=== PATIENT | female | born 2000 | race Caucasian/White ===

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

== ENCOUNTER 2023-12-26 11:17 | Inpatient (IN) | payer BC ==
[~2023-12-26 11:17] MED LIST: Bupivacaine 0.25% 10 ML SDV ONE
[2023-12-26] MEDS ORDERED: Lidocaine 1% 50 ML MDV INJECT PRN (13:23)
[2023-12-26] MEDS ORDERED: Sodium Chloride 0.9% 10 ML Syringe FLUSH PRN (13:23)
[2023-12-26] MEDS: Misoprostol 25 MCG (1/4 of 100 MCG) Tab VAG SCH (13:36)
[2023-12-26 13:50] LABS: BASOPHILS PERCENT AUTO 0.3 % (0.0-1.0); EOSINOPHILS ABSOLUTE AUTO 0.1 K/mm3 (0.0-0.4); EOSINOPHILS PERCENT AUTO 0.7 % (0.0-6.0); HEMATOCRIT 38.8 % (37.0-47.0); HEMOGLOBIN 12.9 gm/dl (12.0-16.0); IMMATURE GRAN PERCENT AUTO 0.7 % (0.0-0.4); LYMPHOCYTES ABSOLUTE AUTO 1.5 K/mm3 (1.0-4.8); LYMPHOCYTES PERCENT AUTO 10.6 % (24.0-44.0); MEAN CORPUSCULAR HEMOGLOBIN 27.9 pg (28.0-32.0); MEAN CORPUSCULAR HGB CONC 33.2 g/dl (32.0-36.0); MEAN CORPUSCULAR VOLUME 83.8 fl (83.0-99.0); MONOCYTES ABSOLUTE AUTO 0.9 K/mm3 (0.0-0.8); MONOCYTES PERCENT AUTO 6.2 % (0.0-8.0); NEUTROPHILS ABSOLUTE AUTO 11.2 K/mm3 (1.8-7.7); NEUTROPHILS PERCENT AUTO 81.5 % (41.0-71.0); PLATELET COUNT,PLT 266 K/mm3 (150-400); RED BLOOD CELL COUNT 4.63 M/mm3 (4.10-5.30); WHITE BLOOD CELL COUNT,WBC 13.79 K/mm3 (3.9-11.3)
[2023-12-26 14:14] LABS: A/G RATIO 0.8 (1-2); ALBUMIN 2.9 g/dl (3.4-5.0); ANION GAP 16.7 (5-15); BILIRUBIN TOTAL 0.2 mg/dL (0.2-1.0); CALCIUM 8.9 mg/dL (8.5-10.1); CREATININE 0.6 mg/dL (0.55-1.02); EST CRCL DRUG DOSING (CG) 113.36 mL/min; POTASSIUM,K 3.7 mEq/L (3.5-5.1); PROTEIN TOTAL,TP 6.5 g/dl (6.4-8.2); URIC ACID 4.3 mg/dL (2.6-6.0)
[2023-12-26 14:23] LABS: CREATININE,URINE RAND 116.4 mg/dL (30.0-125.0); PROTEIN,URINE RANDOM 13.5 mg/dL (0.0-11.8)
[2023-12-26] MEDS: Ondansetron 4 MG/2 ML SDV IVPUSH PRN (21:38)
[2023-12-26] MEDS: Nalbuphine 10 MG/ML Syringe IVPUSH PRN (21:38)
[2023-12-26] MEDS: Oxytocin/Lactated Ringers 30 UNIT/500 ML BAG IV SCH (21:43)
[2023-12-26] MEDS: Sodium Chloride 0.9% 10 ML Syringe FLUSH SCH (22:21)
[2023-12-26] MEDS ORDERED: diphenhydrAMINE 50 MG/ML SDV IVPUSH PRN (22:54)
[2023-12-26] MEDS ORDERED: ePHEDrine 50 MG/ML SDV IVPUSH PRN (22:54)
[2023-12-26] MEDS: fentaNYL 100 MCG/2 ML SDV EPIDUR PRN (23:02)
[2023-12-26] MEDS: Bupivacaine/fentaNYL/NS 100 ML Bag EPIDUR PRN (23:03)
[2023-12-26] MEDS: Lactated Ringers 1,000 ML IV SCH (23:06)
[2023-12-27] MEDS ORDERED: Sodium Chloride 0.9% 10 ML Syringe FLUSH PRN (07:23)
[2023-12-27] MEDS ORDERED: ceFAZolin 2 GM in Sodium Chloride 0.9% 100 ML IV ONE (07:45)
[2023-12-27] MEDS ORDERED: Docusate Sodium 100 MG Cap PO PRN (11:46)
[2023-12-27] MEDS: Metoclopramide 10 MG/2 ML SDV IVPUSH ONE (14:25)
[2023-12-27] MEDS: Citric Acid/Sodium Citrate Solution 30 ML Cup PO ONE (14:25)
[2023-12-27] MEDS: Azithromycin 500 MG in Sodium Chloride 0.9% 250 ML IV ONE (14:25)
[2023-12-27] MEDS: ceFAZolin 2 GM in Sodium Chloride 0.9% 50 ML IV ONE (14:26)
[2023-12-27] MEDS: ceFAZolin 1 GM in Sodium Chloride 0.9% 50 ML IV ONE (14:26)
[2023-12-27] MEDS: Ibuprofen 600 MG Tab PO SCH ×2 (14:46→14:48)
[2023-12-27] MEDS: Benzocaine/Menthol 20%-0.5% Spray 78 GM Cannister TOP PRN (14:49)
[2023-12-27] MEDS: Witch Hazel Medicated Pads 40/Jar TOP PRN (14:50)
[2023-12-27] MEDS: Acetaminophen 325 MG Tab PO PRN (20:29)
[2023-12-29] MEDS: Measles, Mumps & Rubella Vaccine 0.5 ML SDV SUBCUT ONE (20:22)
[2023-12-29 21:45] VITALS: BP 141/86; PULSE 89
== END 2023-12-29 21:02 | disposition home or self-care (01) | DRG 560 ==
LOC: JD.OB 11:17 → OBSVTOIN 12-27 11:17 → JD.OB 12-27 11:18
PROVIDERS: ADMIT Obstetrics & Gynecology; ATTEND Obstetrics & Gynecology
PROC: 10E0XZZ Delivery of Products of Conception, External Approach (ICD-10-PCS; principal; 2023-12-27)
PROC: 3E0R3BZ Introduction of Anesthetic Agent into Spinal Canal, Percutaneous Approach (ICD-10-PCS; 2023-12-27)
PROC: 00HU33Z Insertion of Infusion Device into Spinal Canal, Percutaneous Approach (ICD-10-PCS; 2023-12-27)
PROC: 3E0P7VZ Introduction of Hormone into Female Reproductive, Via Natural or Artificial Opening (ICD-10-PCS; 2023-12-27)
PROC: 3E0234Z Introduction of Serum, Toxoid and Vaccine into Muscle, Percutaneous Approach (ICD-10-PCS; 2023-12-27)
DX: O36.5930 Maternal care for other known or suspected poor fetal growth, third trimester, not applicable or unspecified (principal); Z3A.38 38 weeks gestation of pregnancy; Z37.0 Single live birth; O99.214 Obesity complicating childbirth; E66.01 Morbid (severe) obesity due to excess calories; Z23 Encounter for immunization
CPT/HCPCS: 36415; 51702; 59025; 59409; 80053; 82570; 83615; 84156; 84550; 85025; 86592; 90471; 90707; A9270-GY; J0665; J2300; J2405; J3010; J3490; J7120; J7999